=== PATIENT | female | born 1970 | race Caucasian/White ===

== ENCOUNTER 2016-06-10 09:21 | Emergency (ER) | payer MEDICAID ==
[~2016-06-10] VITALS: Ht 157.5 cm; Wt 61.2 kg
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
[2016-06-10] MEDS ORDERED: CYCLOBENZAPRINE 10 MG TABLET ONE (09:44)
[2016-06-10] MEDS ORDERED: oxyCODONE/APAP (5/325 MG) 1 UDTAB TABLET ONE ×2 (09:44)
[2016-06-10] MEDS ORDERED: ONDANSETRON 4 MG TAB.RAPDIS ONE (09:44)
--- NOTE | 2016-06-10 09:52 | NUR ---
PT MEDICATED ORDERED. PT TAKEN TO CT.
[2016-06-10] MEDS ORDERED: CYCLOBENZAPRINE 10 MG TABLET PO ONE (10:00)
[2016-06-10] MEDS ORDERED: oxyCODONE/APAP (5/325 MG) 1 UDTAB TABLET PO ONE (10:00)
[2016-06-10] MEDS ORDERED: ONDANSETRON 4 MG TAB.RAPDIS SL ONE (10:00)
--- NOTE | 2016-06-10 10:30 | NUR ---
Patient is resting comfortably in bed with eyes closed. Easily aroused. VSS
--- NOTE | 2016-06-10 11:42 | NUR ---
Patient discharged to home in stable condition. Written and verbal after care instructions given. Patient verbalizes understanding of instruction. Pt ambulatory with a steady gait.
[2016-06-10 11:43] VITALS: BP 128/78
== END 2016-06-10 11:44 | disposition home or self-care (01) ==
LOC: ER 09:25
DX: S43.402A Unspecified sprain of left shoulder joint, initial encounter (principal); V43.52XA Car driver injured in collision with other type car in traffic accident, initial encounter; Y93.89 Activity, other specified; Y92.413 State road as the place of occurrence of the external cause; Y99.8 Other external cause status; S73.102A Unspecified sprain of left hip, initial encounter; M79.605 Pain in left leg; R07.81 Pleurodynia
CPT/HCPCS: 71100-TC; 73030-TC; 73510-TC; 73550-TC; A4606; Q0162; Z7610